=== PATIENT | female | born 1940 | race Caucasian/White ===

== ENCOUNTER 2024-05-25 07:50 | Emergency (ER) | payer OTHER, SELFPAY ==
[2024-05-25] VITALS (7 sets, daily range): BP systolic 123–149; BP diastolic 76–108
[2024-05-25 08:12] LABS: % Basophils 1.3 % (0-2); % Eosinophils 3.4 % (0-6); % Immature Granulocytes 0.4 % (0-0.5); % Lymphocytes 23.7 % (20.5-51.1); % Monocytes 9.5 % (1.7-9.3); % Neutrophils 61.7 % (42.2-75.2); Absolute Basophils 0.1 10^3/uL (0-0.2); Absolute Eosinophils 0.3 10^3/uL (0-0.7); Absolute Lymphocytes 1.8 10^3/uL (1.2-3.4); Absolute Monocytes 0.7 10^3/uL (0.1-0.6); Absolute Neutrophils 4.6 10^3/uL (1.4-6.5); Hematocrit 36.2 % (37.0-47.0); Hemoglobin 12.2 g/dL (12.0-16.0); Mean Corp Hgb Conc. 33.7 g/dL (33.0-37.0); Mean Corpuscular Hgb 31.4 pg (27.0-31.0); Mean Corpuscular Volume 93.3 fL (81.0-99.0); Mean Platelet Volume 9.7 fL (7.4-10.4); Nucleated Red Blood Cells % 0 %; Platelet Count 194 10^3/uL (130-400); Red Blood Cell Count 3.88 10^6/uL (4.20-5.40); Red Cell Dist. Width 13.4 % (11.5-14.5); White Blood Cell Count 7.4 10^3/uL (4.8-10.8)
[2024-05-25 08:22] LABS: INR 1.52; PT 18.9 Sec (11.4-14.6)
[2024-05-25 08:39] LABS: Troponin I < 0.012 ng/ml
[2024-05-25 08:46] LABS: ALT (SGPT) 11 U/L (0-35); AST (SGOT) 23 U/L (14-36); Albumin 3.7 g/dl (3.5-5.0); Alkaline Phosphatase 78 U/L (38-126); Blood Urea Nitrogen 19 mg/dl (7-17); Carbon Dioxide 27 mmol/L (22-30); Chloride 101 mmol/L (98-107); Glucose 97 mg/dl (70-99); Potassium 4.4 mmol/L (3.5-5.1); Sodium 133 mmol/L (135-145); Total Bilirubin 0.7 mg/dl (0.2-1.3); Total Protein 6.3 g/dl (6.3-8.2); eGFR > 60.00
--- NOTE | 2024-05-25 11:15 | ED.GENMED ---
History of Present Illness
General
Chief Complaint: Cardiac Symptoms
Source: patient
Exam Limitations: none
Time Seen by Provider: 05/25/24 09:20
History of Present Illness
History of Present Illness:
Patient woke at 5 AM with an episode of irregular slightly rapid heartbeat and just not feeling right. Lasted about 30 minutes. No chest pain or shortness of breath. Daughter did note she dropped 2 things from her hand yesterday although patient
denies acute neurologic symptoms. No unusual headache chest pain shortness of breath syncope etc. currently at baseline
Past History
Past History
ED Past Medical History: Arrthythmia (Atrial fibrillation), HTN, Hypothyroidism and Other (Myasthenia gravis, osteoarthritis)
ED Past Surgical History: Cardiac (cardioversion, Ablation), Cholecystectomy and Orthopedic (Knee replacement)
Social History
Tobacco: Former smoker
Alcohol: None
Drug: None
Personal:
Living: alone
Family History
Family History: Other (Mother with a stroke)
Review of Systems
Review of Systems
All Other Systems: Not applicable
Respiratory: Reports no symptoms
Cardiac: Denies chest pain or syncope
Neurological: Denies dizzy, headache, weakness or numbness
Phy Exam
Physical Exam
Physical Exam:
GENERAL: Alert and oriented in no apparent distress
EYE: Orbits normal.
NECK: Supple, no thyroid palpable
ENT: Pharynx without erythema
CARDIAC: Regular rate and rhythm without any obvious murmurs.
LUNGS: Clear breath sounds,normal
ABDOMEN: Soft, without focal tenderness or distention
NEUROLOGICAL: Alert and oriented , grossly non-focal
SKIN: Warm and dry, no rash or lesion, no discoloration, skin intact.
MUSCULOSKELETAL: No edema,no deformity.Good color
PSYCH: Normal and appropriate interaction.
Course
Orders/Labs/Results
Orders:
Orders
05/25/24 07:52
Electrocardiogram (*1) Urgent
Reason for Study: Atrial Fibrillation
EKG- Treatment ONCE
05/25/24 08:04
Complete Blood Count/With Diff Urgent
Comprehensive Metabolic Panel Urgent
PT/INR [Prothrombin Time] Urgent
Troponin I Urgent
05/25/24 09:38
CT Head W/o Iv Contrast Urgent
Comment:
Reason For Exam: Atrial fibrillation/dropping things
Abnormal Lab Results
05/25/24
08:04
RBC 3.88 L 10^6/uL
(4.20-5.40)
Hct 36.2 L %
(37.0-47.0)
MCH 31.4 H pg
(27.0-31.0)
Absolute Monos (auto) 0.7 H 10^3/uL
(0.1-0.6)
Monocytes % 9.5 H %
(1.7-9.3)
PT 18.9 H Sec
(11.4-14.6)
Sodium 133 L mmol/L
(135-145)
BUN 19 H mg/dl
(7-17)
05/25/24 08:04
05/25/24 08:04
Vital Signs
Initial and Last Documented VS:
Initial Vital Signs
Temp Pulse Resp BP Pulse Ox
98.8 F 69 16 123/85 98
05/25/24 07:55 05/25/24 07:55 05/25/24 07:55 05/25/24 07:55 05/25/24 07:55
Last Documented Vital Signs
Temp Pulse Resp BP Pulse Ox
98.8 F 64 19 143/76 99
05/25/24 07:55 05/25/24 11:51 05/25/24 11:51 05/25/24 11:51 05/25/24 11:51
MDM/Problems Addressed
Differential Diagnosis Includes:
Patient clinically stable neurologically stable benign exam. Workup unremarkable. Stable for discharge to follow-up
*Critical Care Note
Total Time (30-74mins, 75-104mins- exclusive of procedures): Not Applicable
Update Note
Update Note:
Patient is remained stable and nontoxic. Exam unremarkable. Head CT negative. No arrhythmias. Suspect she may have had a brief run of atrial fibrillation but clinically stable for discharge
ED Attending Note
-
Portions of this chart may have been created with voice recognition software.� Occasional wrong word or��sound alike� substitutions may have occurred due to the inherent limitations of voice recognition software.
Discharge Plan
Departure
Patient Disposition: Home (Routine Discharge)
Date of Disposition: 05/25/24
Time of Disposition: 11:16
Patient with high blood pressure during this ER visit?: Yes
Discharge Problem:
Palpitations/possible PAF
Instructions: Atrial Fibrillation (DC), Palpitations ED, BLOOD PRESSURE
Prescriptions:
No Action
levothyroxine 112 MCG tablet
112 mcg PO DAILY
sennosides [senna] 1 TABLET tablet
2 tab PO BID 0RF
acetaminophen [Tylenol Extra Strength] 500 MG tablet
1,000 mg PO Q6H 0RF
Rx Instructions:
Do not exceed >4000 mg daily.
docusate sodium 100 MG capsule
100 mg PO BID 0RF
pyridostigmine bromide 60 MG tablet
60 mg PO Q8HPRN PRN (Reason: Weakness, fatigue) Qty: 0 0RF
warfarin [Jantoven] 5 MG tablet
5 mg PO DAILY Qty: 0 0RF
Rx Instructions:
Resume on 03/25/20 per surgeon
gabapentin 300 MG capsule
300 mg PO BID Qty: 0 0RF
Rx Instructions:
Home medication. Increase dose to twice daily for post-op pain.
Taper down medication to once daily dosing as tolerated.
warfarin [Jantoven] 1 MG tablet
1 mg PO DAILY Qty: 0 0RF
Rx Instructions:
Resume on 03/25/20 per surgeon
tramadol 100 MG tablet extended release 24 hr
100 mg PO BID Qty: 1 0RF
Rx Instructions:
Home medication. Per Dr. Langley: Take 1 tab in AM and 1 tab in PM.
Space 12 hours apart.
sotalol 80 MG tablet
80 mg PO BID Qty: 60 11RF
Rx Instructions:
If systolic blood pressure <100, please contact cardio for further management.
Referrals:
Kelsi Aparicio MD [Family Provider] - Follow up in 2-3 days
Interventions
Interventions:
*Risk Screen - Suicide Last Done: 05/25/24 11:23
*General Assessment Last Done: 05/25/24 11:23
*Neglect/Abuse Screening Last Done: 05/25/24 11:51
ED- Fall Risk Assessment Last Done: 05/25/24 11:51
*ED COVID-19 Vaccine History Last Done: 05/25/24 11:23
*Nursing Disposition Last Done: 05/25/24 11:51
ED- Pulmonary Assessment Last Done: 05/25/24 10:45
ED- Cardiac Assessment Last Done: 05/25/24 10:45
Discharge Date and Time
Discharge Date/Time: 05/25/24 11:53
Print Language: [place]QI
== END 2024-05-25 11:53 | disposition home or self-care (01) ==
LOC: EMR 07:50
PROVIDERS: EMERGENCY PHYSICIAN Emergency Medicine; FAMILY PHYSICIAN Internal Medicine
DX: R00.2 Palpitations (principal); E03.9 Hypothyroidism, unspecified; I10 Essential (primary) hypertension; I48.91 Unspecified atrial fibrillation; Z87.891 Personal history of nicotine dependence; Z90.49 Acquired absence of other specified parts of digestive tract
CPT/HCPCS: 99284; 70450; 80053; 84484; 85025; 85610; 93005